=== PATIENT | male | born 1960 | race Caucasian/White ===

== ENCOUNTER → 2024-10-29 | Outpatient (CLI) | payer MEDICAID, SELFPAY ==
[2024-11-01 04:07] LABS: QNTFERON TB Mitogen Value > 10.00 IU/mL (.); QNTIFERON TB Positive Criteria Negative (Negative)
== END | disposition home or self-care (01) ==
LOC: MTLAB 11:17
PROVIDERS: PCP Nurse Practitioner Family; Referring Provider Physician Assistant; Visit Provider Physician Assistant
DX: L40.0 Psoriasis vulgaris (principal); Z79.899 Other long term (current) drug therapy
CPT/HCPCS: 36415; 86480